=== PATIENT | male | born 1960 | race African-American/Black ===

== ENCOUNTER 2021-02-15 10:07 | Inpatient (IN) | payer BC, OTHER ==
[~2021-02-15] VITALS: Ht 177.8 cm; Wt 79.4 kg
--- NOTE | 2021-02-15 10:16 | NUR ---
TO ER BED 6, C/O ABDOMINAL PAIN X3DAYS, NO BM X2DAYS, AAOX3, BREATHING EVEN AND NON LABORED, ATTACHED TO MONITOR, CHANGED INTO A GOWN
--- NOTE | 2021-02-15 10:25 | NUR ---
SALINE LOCK ESTABLISHED, BLOOD DRAWN AND SENT TO LAB
[2021-02-15] MEDS ORDERED: ONDANSETRON HCL/PF 4 MG/2 ML VIAL IVP ONE (10:30)
[2021-02-15] MEDS ORDERED: IV NS 0.9% 500 ML BAG IV ONE (10:30)
[2021-02-15] MEDS ORDERED: MORPHINE SULFATE INJ 2 MG/ML DISP.SYRIN IV ONE (10:30)
--- NOTE | 2021-02-15 10:35 | NUR ---
COVID SWAB DONE AND SENT
[2021-02-15] MEDS ORDERED: MORPHINE SULFATE INJ 4 MG/ML DISP.SYRIN ONE (10:40)
[2021-02-15] MEDS ORDERED: ONDANSETRON HCL/PF 4 MG/2 ML VIAL ONE (10:40)
[2021-02-15 11:03] LABS: BASOPHILS % (AUTO) 0.3 % (0.0-2.0); EOSINOPHILS % (AUTO) 1.6 % (0.0-6.0); HEMATOCRIT 44 % (39-51); HEMOGLOBIN 14.4 g/dL (13.5-17.5); LYMPHOCYTES # (AUTO) 1.4 K/uL (0.8-4.8); MEAN CORPUSCULAR HGB CONC 33 g/dl (31.0-36.0); MEAN CORPUSCULAR VOLUME 86 fL (80-96); MONOCYTES # (AUTO) 0.6 K/uL (0.1-1.30); MONOCYTES % (AUTO) 11.1 % (2.0-12.0); NEUTROPHILS # (AUTO) 3.5 K/uL (1.8-8.9); PLATELET COUNT (AUTO) 224 K/uL (150-450); RED BLOOD CELL COUNT(AUTO) 5.09 MIL/uL (4.5-6.0); WHITE BLOOD COUNT (AUTO) 5.7 K/uL (4.3-11.0)
--- NOTE | 2021-02-15 11:08 | NUR ---
TAKEN TO CT
[2021-02-15 11:10] LABS: CALCIUM, SERUM 9.1 mg/dL (8.5-10.1); CARBON DIOXIDE 34 mmol/L (21-32); CHLORIDE 99 mmol/L (98-107); CREATININE 0.9 mg/dL (0.6-1.3); GLUCOSE 109 mg/dL (74-106); POTASSIUM 4.2 mmol/L (3.5-5.1); SODIUM SERUM 135 mmol/L (136-145); UREA NITROGEN, BLOOD 7 mg/dL (7-18)
[2021-02-15] MEDS ORDERED: IV NS 0.9% 250 ML IV ONE (11:12)
[2021-02-15] MEDS ORDERED: IOHEXOL-300 100 ML VIAL IV ONE (11:12)
[2021-02-15 11:17] LABS: ALANINE AMINOTRANSFERASE 49 U/L (12-78); ALBUMIN 3.4 g/dL (3.4-5.0); ALKALINE PHOSPHATASE 82 U/L (46-116); ASPARTATE AMINOTRANSFERASE 34 U/L (15-37); BILIRUBIN,DIRECT 0.1 mg/dL (0.0-0.2); BILIRUBIN,TOTAL 0.5 mg/dL (0.2-1.0); LIPASE 57 U/L (73-393)
[2021-02-15] MEDS ORDERED: MAG HYDROX/AL HYDROX/SIMETH 30 ML UDC PO PRN (13:00)
[2021-02-15] MEDS ORDERED: ONDANSETRON HCL/PF 4 MG/2 ML VIAL IVP PRN (13:00)
[2021-02-15] MEDS ORDERED: ACETAMINOPHEN 325 MG TABLET PO PRN (13:00)
[2021-02-15] MEDS ORDERED: Z GUARD REMEDY 2 OZ OINT TP PRN (13:00)
[2021-02-15] MEDS ORDERED: TEMAZEPAM 15 MG CAPSULE PO PRN (13:00)
--- NOTE | 2021-02-15 13:27 | NUR ---
REPORT GIVEN TO MARTHA RICE FOR TERRANCE
--- NOTE | 2021-02-15 13:33 | NUR ---
MS RICE ADMITTING NOTES RECEIVED ADMISSION FROM ER. PATIENT MEDICALLY STABLE, COMPLAINING OF ABDOMINAL PAIN. VS WNL. WILL CONTINUE TO MONITOR PATIENT.
[2021-02-15] MEDS: HYDROCODONE/APAP 5/325MG TABLET PO PRN (14:48)
[2021-02-15] MEDS: ENOXAPARIN SODIUM 40 MG/0.4 ML DISP.SYRIN SQ SCH (14:50)
--- NOTE | 2021-02-15 14:51 | NUR ---
MS RN NOTES PATIENT COMPLAINING OF LEFT UPPER ABDOMINAL PAIN; REQUESTING PAIN MEDICATION. PAIN 6 OUT OF 10. PRN NORCO ADMINISTERED. WILL REASSESS.
[2021-02-15 16:00] VITALS: BP 160/87
[2021-02-15] MEDS: IV NS 0.9% 1,000 ML IV PRN (17:57)
--- NOTE | 2021-02-15 18:36 | NUR ---
MS RN CLOSING NOTES PATIENT REMAINS IN BED, AWAKE, A/O X4. PATIENT ON ROOM AIR; BREATHING EVEN AND UNLABORED AT THIS TIME, NO SOB NOTED. PAIN TREATED WITH PRN PAIN MEDICATION PER MD ORDER. LAC IV ACCESS G # 18 PRESENT AND INTACT INFUSING NS @ 75 MLS/HR. SAFETY PRECAUTIONS IN PLACE; BED IN LOW POSITION AND LOCKED, RAILS UP X2, CALL LIGHT WITHIN REACH. WILL ENDORSE TO LINOLEUM TILE LAYER NURSE FOR TERRANCE.
[2021-02-15] MEDS: MORPHINE SULFATE INJ 2 MG/ML DISP.SYRIN IV PRN ×2 (19:32→23:33)
--- NOTE | 2021-02-15 19:52 | NUR ---
Patient A&Ox4. Reports severe abdominal pain. PRN morphine given per MD order. No signs of respiratory or cardiac distress. Tolerating clear liquids okay. IV patent, flushed, infusing NS at 75cc/hr. Will continue to monitor.
[2021-02-15 20:00] VITALS: BP 131/89
--- NOTE | 2021-02-16 02:05 | NUR ---
PT C/O 8/10 ACHING PAIN, PER PT REQUEST, MORPHINE 4MG/2ML IV Q4H PRN ADMINISTERED AT THIS TIME PER ORDER. WILL CONTINUE TO MONITOR.
[2021-02-16] MEDS: MORPHINE SULFATE INJ 2 MG/ML DISP.SYRIN IV PRN ×4 (05:35→20:04)
--- NOTE | 2021-02-16 06:04 | NUR ---
MS RN CLOSING NOTES Patient has been A&Ox4. Sleeping intermittently throughout shift though easy to wake. Severe abdominal pain managed with PRN morphine -pt. reports relief. Denies nausea. RAC #18G IV intact and patent running NS at 75cc/hr. No other issues overnight.
[2021-02-16] MEDS: PANTOPRAZOLE 40 MG TABLET.DR PO SCH (06:51)
[2021-02-16] MEDS: IV NS 0.9% 1,000 ML IV PRN (06:53)
[2021-02-16 07:14] LABS: CALCIUM, SERUM 8.5 mg/dL (8.5-10.1); CARBON DIOXIDE 32 mmol/L (21-32); CHLORIDE 101 mmol/L (98-107); CREATININE 0.8 mg/dL (0.6-1.3); GLUCOSE 92 mg/dL (74-106); MAGNESIUM 2.1 mg/dL (1.8-2.4); PHOSPHORUS 3.8 mg/dL (2.5-4.9); POTASSIUM 4.2 mmol/L (3.5-5.1); SODIUM SERUM 136 mmol/L (136-145); UREA NITROGEN, BLOOD 6 mg/dL (7-18)
[2021-02-16 07:17] LABS: CHOLESTEROL 172 mg/dL (<200); HDL CHOLESTEROL 45 mg/dL (40-60); LDL 112 mg/dL (0-99); TRIGLYCERIDES 90 mg/dL (30-150)
--- NOTE | 2021-02-16 07:20 | NUR ---
MS RN OPENING NOTES RECEIVED PATIENT ON BED, AWAKE, A/O X4. PATIENT ON ROOM AIR WITH EVEN BREATHING AND UNLABORED AT THIS TIME, WITH NO SIGNS OF SOB NOTED. NO COMPLAINT OF PAIN OR DISCOMFORT AT THIS TIME. WITH RIGHT AC G 18 WITH IVF OF NS RUNNING AT 75ML/HR. SAFETY MEASURES DONE WITH BED AT LOWEST AND LOCKED POSITION, SIDERAILS RAISED, CALL LIGHT AND TABLE WITHIN REACH. WILL CONTINUE TO MONITOR PATIENT.
[2021-02-16 07:23] LABS: BASOPHILS % (AUTO) 0.5 % (0.0-2.0); EOSINOPHILS % (AUTO) 2.6 % (0.0-6.0); HEMATOCRIT 42 % (39-51); HEMOGLOBIN 13.9 g/dL (13.5-17.5); LYMPHOCYTES # (AUTO) 1.5 K/uL (0.8-4.8); LYMPHOCYTES % (AUTO) 33.1 % (20.0-44.0); MEAN CORPUSCULAR HGB CONC 33 g/dl (31.0-36.0); MEAN CORPUSCULAR VOLUME 85 fL (80-96); MONOCYTES # (AUTO) 0.6 K/uL (0.1-1.30); MONOCYTES % (AUTO) 14.3 % (2.0-12.0); NEUTROPHILS # (AUTO) 2.2 K/uL (1.8-8.9); NEUTROPHILS % (AUTO) 49.5 % (43.0-81.0); PLATELET COUNT (AUTO) 213 K/uL (150-450); RED BLOOD CELL COUNT(AUTO) 4.95 MIL/uL (4.5-6.0); WHITE BLOOD COUNT (AUTO) 4.4 K/uL (4.3-11.0)
[2021-02-16 08:11] VITALS: BP 112/76
[2021-02-16] MEDS: ENOXAPARIN SODIUM 40 MG/0.4 ML DISP.SYRIN SQ SCH (13:35)
--- NOTE | 2021-02-16 14:50 | NUR ---
SISTER NEELIMA CALLED AND LEFT HER NUMBER .
[2021-02-16] MEDS: MAGNESIUM HYDROXIDE 30 ML UDC PO PRN ×2 (15:12→22:49)
[2021-02-16 16:18] VITALS: BP 130/83
--- NOTE | 2021-02-16 19:00 | NUR ---
MS RN CLOSING NOTES PATIENT ON BED, AWAKE, A/O X4. PATIENT ON ROOM AIR WITH EVEN BREATHING AND UNLABORED AT THIS TIME, WITH NO SIGNS OF SOB NOTED. NO COMPLAINT OF PAIN OR DISCOMFORT AT THIS TIME. WITH RIGHT AC G 18 WITH IVF OF NS RUNNING AT 75ML/HR. SAFETY MEASURES DONE WITH BED AT LOWEST AND LOCKED POSITION, SIDERAILS RAISED, CALL LIGHT AND TABLE WITHIN REACH. WILL ENDORSE PATIENT FOR CONTINUITY OF CARE.
--- NOTE | 2021-02-16 19:00 | NUR ---
MS RN OPENING NOTE RECEIVED PT IN BED, RESTING A/O X4, PT STABLE ON ROOM AIR. NO S/S OF RESPIRATORY DISTRESS. NO C/O PAIN AT THIS TIME. IV ACCESS IN RIGHT AC G #18. IV IS INTACT, PATENT, AND FLUSHING WELL. SAFETY MEASURES MAINTAINED AT ALL TIMES. BED IN LOWEST LOCKED POSITION, HOB ELEVATED, SIDE RAILS UP X2. CALL LIGHT AND TABLE WITHIN REACH. WILL CONTINUE WITH PLAN OF CARE.
[2021-02-16 20:00] VITALS: BP 133/87
--- NOTE | 2021-02-16 20:04 | NUR ---
PT C/O 8/10 ACHING PAIN, PER PT REQUEST, MORPHINE 4MG/2ML IV Q4H PRN ADMINISTERED AT THIS TIME PER ORDER. WILL CONTINUE TO MONITOR.
--- NOTE | 2021-02-16 22:49 | NUR ---
PER PT REQUEST MOM 30ML/I UNIT ADMINISTERED AT THIS TIME PER ORDER FOR CONSTIPATION
[2021-02-17] MEDS: MORPHINE SULFATE INJ 2 MG/ML DISP.SYRIN IV PRN ×2 (02:05→08:18)
--- NOTE | 2021-02-17 06:47 | NUR ---
MS RN CLOSING NOTE PT AWAKE AND RESTING IN BED, STABLE ON ROOM AIR. PT REMAINED STABLE THROUGHOUT SHIFT. ALL NEEDS, MEDICATIONS, AND CARE ADMINISTERED ANTICIPATED PER ORDER; PAIN CONTROL ADMINISTERED PER ORDER. SAFETY PRECAUTIONS IN PLACE AND MAINTAINED AT ALL TIMES. BED IN LOWEST, LOCKED POSITION, HOB ELEVATED, SIDE RAILS UP X2. CALL LIGHT AND TABLE WITHIN REACH. WILL ENDORSE TO AM SHIFT NURSE FOR TERRANCE.
--- NOTE | 2021-02-17 07:30 | NUR ---
RN OPENING NOTES Patient seen comfortably lying in bed, no SOB, no apparent distress noted, breathing even and unlabored, denies any pain or discomfort at this time. Call light left within reach, safety precautions in place, brakes locked, side rails up X 2, will monitor closely for any changes.
[2021-02-17 08:00] VITALS: BP 119/70
[2021-02-17] MEDS: PANTOPRAZOLE 40 MG TABLET.DR PO SCH (08:24)
[2021-02-17] MEDS ORDERED: HYDR-4275 PO (08:47)
[2021-02-17] MEDS: HYDROCODONE/APAP 5/325MG TABLET PO PRN (09:09)
--- NOTE | 2021-02-17 09:16 | NUR ---
Patient to be discharged today, no apparent distress noted, pain medication given as needed per MD order when non pharmacological measures ineffective. Patient made aware of the situation, he signed all discharge paperworks, all belongings taken, inventory list signed by patient. Health teaching provided, verbalized understanding and gratitude. Skin intact, warm to touch, no pallor or cyanosis noted. Peripheral IV removed and covered with dry dressing. Name wristband removed prior to discharge. Patient left unit at 0915am, stable condition, surgical facial mask and exit care folder with paperworks provided to patient. RN assisted patient via wheelchair going to the hospital lobby.
--- NOTE | 2021-02-17 10:40 | NUR ---
SS consult requested over the weekend Pt. has departed.
== END 2021-02-17 09:30 | disposition home or self-care (01) | DRG 435 ==
LOC: ER 10:09 → MED 13:33
PROVIDERS: ADMIT Nurse Practitioner Acute Care; ATTEND Nurse Practitioner Acute Care
DX: C25.9 Malignant neoplasm of pancreas, unspecified (principal); K68.9 Other disorders of retroperitoneum; E87.1 Hypo-osmolality and hyponatremia; G95.89 Other specified diseases of spinal cord; E86.1 Hypovolemia; Z90.49 Acquired absence of other specified parts of digestive tract; Z59.00 Homelessness unspecified; F17.200 Nicotine dependence, unspecified, uncomplicated; Z20.822 Contact with and (suspected) exposure to COVID-19; Z90.411 Acquired partial absence of pancreas; N40.0 Benign prostatic hyperplasia without lower urinary tract symptoms
CPT/HCPCS: 36415; 71045-TC; 76870-TC; 80048-TC; 80061-TC; 80076-TC; 82105; 82378; 83615-TC; 83690-TC; 83735-TC; 84100-TC; 84484-TC; 84702-TC; 85025-TC; 85730-TC; 86301; 87081-TC; C9803; G0378; J1650; J2270; J2405; J7030; J7050; Q9967